=== PATIENT | male | born 1975 | race Caucasian/White ===

== ENCOUNTER 2019-05-06 09:47 | Emergency (ER) | payer OTHER ==
[~2019-05-06] VITALS: Ht 172.7 cm; Wt 93.9 kg
[2019-05-06 09:55] VITALS: Ht 172.7 cm; Wt 93.9 kg
[2019-05-06 11:55] VITALS: BP 124/84
== END 2019-05-06 11:55 | disposition home or self-care (01) ==
LOC: ED 09:47
DX: M54.2 Cervicalgia (principal); M54.5 Low back pain; Z88.1 Allergy status to other antibiotic agents; V43.52XA Car driver injured in collision with other type car in traffic accident, initial encounter; Y93.I9 Activity, other involving external motion; Y92.413 State road as the place of occurrence of the external cause; Y99.8 Other external cause status

== ENCOUNTER 2019-12-30 01:25 | Emergency (ER) | payer OTHER ==
[~2019-12-30] VITALS: Ht 172.7 cm; Wt 96.6 kg
[2019-12-30 01:47] VITALS: Ht 172.7 cm; Wt 96.6 kg
[2019-12-30 03:06] VITALS: BP 125/70
== END 2019-12-30 04:50 | disposition home or self-care (01) ==
LOC: ED 01:25
DX: T78.40XA Allergy, unspecified, initial encounter (principal); Z88.8 Allergy status to other drugs, medicaments and biological substances; X58.XXXA Exposure to other specified factors, initial encounter
CPT/HCPCS: J0171; J1200; J2405; J2930; J3490; J7030; J7613; J7644

== ENCOUNTER 2020-06-23 08:27 | Emergency (ER) | payer BC ==
[~2020-06-23] VITALS: Ht 177.8 cm; Wt 90.3 kg
[2020-06-23 08:34] VITALS: Ht 177.8 cm; Wt 90.3 kg
[2020-06-23 10:22] VITALS: BP 154/107
== END 2020-06-23 10:22 | disposition home or self-care (01) ==
LOC: ED 08:27
DX: M75.32 Calcific tendinitis of left shoulder (principal)
CPT/HCPCS: 20552; J2001; J3301; J3490; Q0092

== ENCOUNTER 2020-06-25 15:18 | Emergency (ER) | payer BC ==
[~2020-06-25] VITALS: Ht 172.7 cm; Wt 92.1 kg
[2020-06-25 15:23] VITALS: Ht 172.7 cm; Wt 92.1 kg
[2020-06-25 16:32] VITALS: BP 142/95
== END 2020-06-25 16:32 | disposition home or self-care (01) ==
LOC: ED 15:18
DX: M75.102 Unspecified rotator cuff tear or rupture of left shoulder, not specified as traumatic (principal); J45.909 Unspecified asthma, uncomplicated; Z90.89 Acquired absence of other organs; Z88.1 Allergy status to other antibiotic agents
CPT/HCPCS: J1885

== ENCOUNTER 2020-09-08 09:08 | Emergency (ER) | payer BC ==
[~2020-09-08] VITALS: Ht 172.7 cm; Wt 89.8 kg
[2020-09-08 09:18] VITALS: Ht 172.7 cm; Wt 89.8 kg
[2020-09-08 10:20] VITALS: BP 138/84
== END 2020-09-08 10:21 | disposition home or self-care (01) ==
LOC: ED 09:08
DX: L50.9 Urticaria, unspecified (principal); J45.909 Unspecified asthma, uncomplicated; Z88.1 Allergy status to other antibiotic agents; Z90.89 Acquired absence of other organs
CPT/HCPCS: J7512

== ENCOUNTER 2020-09-17 09:19 | Emergency (ER) | payer OTHER ==
[~2020-09-17] VITALS: Ht 172.7 cm; Wt 94.3 kg
[2020-09-17 09:24] VITALS: Ht 172.7 cm; Wt 94.3 kg
[2020-09-17 10:19] VITALS: BP 122/65
== END 2020-09-17 10:19 | disposition home or self-care (01) ==
LOC: ED 09:19
DX: L50.0 Allergic urticaria (principal); J45.909 Unspecified asthma, uncomplicated; Z98.890 Other specified postprocedural states; Z90.89 Acquired absence of other organs; Z88.1 Allergy status to other antibiotic agents
CPT/HCPCS: J1200; J2930

== ENCOUNTER 2020-09-19 12:09 | Emergency (ER) | payer OTHER ==
[~2020-09-19] VITALS: Ht 172.7 cm; Wt 91.2 kg
[2020-09-19 12:16] VITALS: Ht 172.7 cm; Wt 91.2 kg
[2020-09-19 13:57] VITALS: BP 127/90
== END 2020-09-19 13:57 | disposition home or self-care (01) ==
LOC: ED 12:09
DX: L50.9 Urticaria, unspecified (principal); J45.909 Unspecified asthma, uncomplicated; Z88.1 Allergy status to other antibiotic agents; Z98.890 Other specified postprocedural states; Z90.89 Acquired absence of other organs
CPT/HCPCS: J1200; J2930

== ENCOUNTER 2020-09-23 00:05 | Emergency (ER) | payer OTHER ==
[~2020-09-23] VITALS: Ht 172.7 cm; Wt 91.2 kg
[2020-09-23 00:11] VITALS: Ht 172.7 cm; Wt 91.2 kg
[2020-09-23 02:05] VITALS: BP 142/81
== END 2020-09-23 02:05 | disposition home or self-care (01) ==
LOC: ED 00:05
DX: L50.9 Urticaria, unspecified (principal)
CPT/HCPCS: J1200; J2920

== ENCOUNTER 2021-02-07 11:54 | Emergency (ER) | payer OTHER ==
[~2021-02-07] VITALS: Ht 172.7 cm; Wt 93.4 kg
[2021-02-07 12:12] VITALS: Ht 172.7 cm; Wt 93.4 kg
[2021-02-07] MEDS ORDERED: ULTRAM50 MG PO (12:44)
[2021-02-07] MEDS ORDERED: NAPROXEN375 MG PO (12:44)
[2021-02-07] MEDS ORDERED: PREDNISONE50 MG PO (12:44)
[2021-02-07 13:08] VITALS: BP 129/84
== END 2021-02-07 13:08 | disposition home or self-care (01) ==
LOC: ED 11:54
DX: M72.2 Plantar fascial fibromatosis (principal); J45.909 Unspecified asthma, uncomplicated; Z90.89 Acquired absence of other organs; Z98.890 Other specified postprocedural states; Z88.1 Allergy status to other antibiotic agents